=== PATIENT | male | born 1990 | race Caucasian/White ===

== ENCOUNTER 2022-05-07 03:54 | Inpatient (IN) | payer SELFPAY ==
[2022-05-07] MEDS ORDERED: Sodium Chloride 0.9% 1,000 ML IV SCH (04:30)
[2022-05-07] MEDS ORDERED: Ondansetron 4 MG/2 ML SDV IVPUSH ONE ×2 (04:41→12:40)
[2022-05-07 05:38] LABS: ESTIMATED GFR 103 mL/min (>60)
[2022-05-07 05:40] LABS: ACETAMINOPHEN 0 ug/mL (10-30)
[2022-05-07] MEDS ORDERED: OLANZapine 10 MG Vial IM ONE ×3 (09:37→16:23)
[2022-05-07] MEDS ORDERED: LORazepam 2 MG/ML SDV IVPUSH ONE (12:41)
[2022-05-07] MEDS ORDERED: Lactated Ringers 1,000 ML IV SCH (14:30)
[2022-05-07] MEDS ORDERED: Ondansetron 8 MG in Sodium Chloride 0.9% 50 ML IV PRN (16:13)
[2022-05-07] MEDS ORDERED: LORazepam 2 MG/ML SDV IV PRN (16:13)
[2022-05-07] MEDS: Dextrose 5%-0.45% NaCl 1,000 ML IV SCH (17:36)
[2022-05-07] MEDS ORDERED: Ondansetron 4 MG/2 ML SDV IVPUSH PRN (18:15)
[2022-05-08] MEDS: Dextrose 5%-0.45% NaCl 1,000 ML IV SCH (01:07)
[2022-05-08 05:54] LABS: ESTIMATED GFR 117 mL/min (>60)
[2022-05-08] MEDS ORDERED: Thiamine 200 MG/2 ML MDV IVPUSH SCH (09:00)
== END 2022-05-08 17:20 | disposition home or self-care (01) | DRG 917 ==
LOC: JD.ED 03:54 → JD.ICU 16:13
PROVIDERS: ADMIT Pediatrics; ATTEND Internal Medicine
DX: T42.8X2A Poisoning by antiparkinsonism drugs and other central muscle-tone depressants, intentional self-harm, initial encounter (principal); U07.1 COVID-19; M62.82 Rhabdomyolysis; F32.A Depression, unspecified; F10.920 Alcohol use, unspecified with intoxication, uncomplicated; K30 Functional dyspepsia; R74.8 Abnormal levels of other serum enzymes; F20.9 Schizophrenia, unspecified; K83.9 Disease of biliary tract, unspecified; F12.90 Cannabis use, unspecified, uncomplicated
CPT/HCPCS: 36415; 70450; 70450-26; 80053; 80143; 80179; 80306; 80307; 81001; 82550; 82947; 83605; 83735; 84484; 85025; 86140; 93005; 96361; 96365; 96366; 96372; 96375; 96376; 99285-25; J2060; J2405; J3411; J3490; J7030; J7042; U0002

== ENCOUNTER 2024-01-19 19:03 | Emergency (ER) | payer SELFPAY | END 2024-01-19 21:16 | disposition home or self-care (01) | LOC: JD.ED 19:03 | DX: K04.7 Periapical abscess without sinus (principal); K02.9 Dental caries, unspecified; Z86.16 Personal history of COVID-19; F17.210 Nicotine dependence, cigarettes, uncomplicated | CPT/HCPCS: 99282 ==

== ENCOUNTER 2024-07-31 13:33 | Emergency (ER) | payer SELFPAY | END 2024-07-31 18:34 | disposition left against medical advice (07) | LOC: JD.ED 13:33 | DX: Z53.21 Procedure and treatment not carried out due to patient leaving prior to being seen by health care provider (principal) ==